=== PATIENT | male | born 1955 | race Caucasian/White ===

== ENCOUNTER 2016-08-31 08:36 | Emergency (ER) | payer OTHER ==
[~2016-08-31] VITALS: Ht 180.3 cm; Wt 88.0 kg
[2016-08-31 08:41] VITALS: Ht 180.3 cm; Wt 88.0 kg
--- NOTE | 2016-08-31 09:41 | RADRPT ---
PROCEDURE: XR Chest. CLINICAL INDICATION: Chest pain , cough TECHNIQUE: Single portable view of the chest was obtained COMPARISON: None FINDINGS: The heart and mediastinum are within normal limits. There are mild linear bibasilar atelectatic changes. The lungs are otherwise clear. There is no pleural effusion or pneumothorax. RPTAT: AA IMPRESSION: Mild linear bibasilar atelectatic changes. .Antonio Perdomo MD, MD Date Time Electronically viewed and signed by .Antonio Perdomo MD, MD on 08/31/2016 09:41 .S/
[2016-08-31] MEDS ORDERED: BENZ100C70 PO (10:38)
[2016-08-31] MEDS ORDERED: AZIT250T94 PO (10:38)
[2016-08-31] MEDS ORDERED: ALBU18HF INHALATION (10:38)
--- NOTE | 2016-08-31 17:59 | ERD ---
ER Documentation Chief Complaint Date/Time DATE: 08/31/16 TIME: 17:55 Chief Complaint ON AND OFF PRODUCTIVE COUGH WITH YELLOWISH PHLEGM X 5 MONTHS HPI 60-year-old male patient with a past medical history of diabetes presents to the ED complaining of a productive cough that started 5 months ago. Patient attributes this to a gas leak that is occurring at his apartment. States that it was not fixed until a few days ago. Denies any chest pain, wheezing, shortness of breath, abdominal pain, nausea, vomiting, diarrhea. Reports that some of the other residents are having similar symptoms. Denies any fever, chills. ROS All systems reviewed and are negative except as per history of present illness. Medications Home Meds Active Scripts Albuterol Sulfate* (Ventolin HFA*) 18 Gm Hfa.aer.ad, 2 PUFF INHALATION Q4H, #1 INHALER Prov:LYNN VICKERS PA-C 08/31/16 Benzonatate* (Tessalon Perle*) 100 Mg Capsule, 100 MG PO Q8H Y for COUGH, #20 CAP Prov:LYNN VICKERS PA-C 08/31/16 Azithromycin* (Zithromax*) 250 Mg Tablet, 250 MG PO .ZPACK DIRECTED, #6 TAB TAKE 500 MG (2 TABS) THE FIRST DAY THEN 250 MG (1 TAB) DAYS 2-5 Prov:LYNN VICKERS PA-C 08/31/16 PMhx/Soc Medical and Surgical Hx: pt denies Medical Hx, pt denies Surgical Hx Hx Alcohol Use: No Hx Substance Use: No Smoking Status: Never smoker Physical Exam Vitals Vital Signs Date Time Temp Pulse Resp B/P Pulse Ox O2 Delivery O2 Flow Rate FiO2 08/31/16 08:41 98.2 86 19 144/84 98 Physical Exam Const: Nhx-bjr-bsrhvvrcn, well-nourished. In no acute distress. Head: Atraumatic, normocephalic Eyes: Normal Conjunctiva without injection. No purulent discharge. PERRL. EOMI ENT: Normal external ear. Ear canal without erythema. Tympanic membrane pearly forbes without effusion or bulging. Nasal canal clear with normal turbinates. Moist oropharynx without tonsillar exudates. Non-erythematous pharynx. Uvula midline. No drooling. No trismus. Neck: Full range of motion. No meningismus. No cervical lymphadenopathy. Resp: Clear to auscultation bilaterally. No wheezing, rhonchi, rales, or crackles. No accessory muscle use. No retractions. Cardio: Regular rate and rhythm. No murmurs, rubs or gallops. Abd: Soft, non tender, non distended. Normal bowel sounds. No palpable masses. No rebound tenderness. No guarding. Skin: No petechiae or rashes Back: No midline tenderness. No CVA tenderness. Ext: No cyanosis, or edema. Neur: Awake and alert. Psych: Normal Mood and Affect Procedures/MDM This is a 60-year-old male patient with a past medical history of diabetes presents to the ED complaining of a productive cough with yellow phlegm that started intermittently 5 months ago. Patient is afebrile and nontoxic- appearing. Patient has normal vital signs. Since patient attributes the symptoms to a gas leak, the poison control was called at this time. Case number is [id number]. Sharon the pharmacist stated that patient's symptoms are unlikely due to a natural gas exposure. Propane and methane does not cause a productive cough she stated. Patient does not have any asphyxiation or hypoxia. Pulse oximetry is 98%. This patient presents to the ED with symptoms consistent with bronchitis. Patient's physical exam include lungs which were clear to auscultation and a normal pulse oximetry. There is a low suspicion for pneumonia, pneumothorax, mononucleosis, pulmonary embolism, epiglottitis, otitis media, otitis externa, viral/strep pharyngitis, sinusitis, peritonsillar abscess, mastoiditis, retropharyngeal abscess, meningitis, sepsis, acute abdomen or other emergent conditions. Discharge medications: Ventolin, Tessalon Perles, Zithromax Patient was instructed to return to the ED for any new or worsening symptoms. They should otherwise follow up with the primary care provider within 1-2 days. The patient's questions were answered at the time of discharge. Patient understood and agreed with discharge management. Departure Diagnosis: Primary Impression: Cough Condition: Stable Patient Instructions: Bronchitis, Antiobiotic Treatment (Adult) Referrals: [facility]ULE[facility] MUNGUIA [facility] (PCP) [facility] () Usted se peter hecho un examen mdico de control que le indica que no est en christi condicin que requiera tratamiento urgente en el Departamento de Emergencia. Un estudio ms profundo y el tratamiento de kitchen condicin pueden esperar sin ningn riesgo hasta que usted sea atendida/o en el consultorio de kitchen mdico o christi cl hesham. Es responsabilidad suya arreglar christi neva para el seguimiento del barb. MANEJO DE CONDICIONES NO URGENTES EN EL FUTURO 1) Si usted tiene un mdico de atencin primaria: Usted debera llamar a kitchen mdico de atencin primaria antes de venir al departamento de emergencia. Despus de las horas de consultorio, kitchen doctor o kitchen asociado/a est disponible por telfono. El mdico o enfermero de doug en el servicio telefnico puede asesorarle por jay medio para atender el problema, o barb contrario se puede programar christi neva. 2) Si usted no tiene un mdico de atencin primaria: Llame al mdico o clnica de referencia que aparece abajo phyllis las horas de consultorio para hacer christi neva para que le vean. CLINICAS: [facility] [phone] [facility] [phone] [facility] [phone] [facility]. [place] [id number] [phone] [facility] [place] [id number] [phone] [facility]. [phone] [facility] () Usted se peter hecho un examen mdico de control que le indica que no est en christi condicin que requiera tratamiento urgente en el Departamento de Emergencia. Un estudio ms profundo y el tratamiento de kitchen condicin pueden esperar sin ningn riesgo hasta que usted sea atendida/o en el consultorio de kitchen mdico o christi cl hesham. Es responsabilidad suya arreglar christi neva para el seguimiento del barb. MANEJO DE CONDICIONES NO URGENTES EN EL FUTURO 1) Si usted tiene un mdico de atencin primaria: Usted debera llamar a kitchen mdico de atencin primaria antes de venir al departamento de emergencia. Despus de las horas de consultorio, kitchen doctor o kitchen asociado/a est disponible por telfono. El mdico o enfermero de doug en el servicio telefnico puede asesorarle por jay medio para atender el problema, o barb contrario se puede programar christi neva. 2) Si usted no tiene un mdico de atencin primaria: Llame al mdico o condado institucions de referencia que aparece abajo phyllis las horas de consultorio para hacer christi neva para que le vean. SI USTED NO PUEDE PAGAR PARA SUNDAR UN MEDICO puede ir a: [facility] [id number] [place] [address] [facility] [address] [place] [address] [facility] [address] [place] [address] [facility] [address] [place] [address] Additional Instructions: Call your primary care doctor TOMORROW for an appointment during the next 2-3 days.See the doctor sooner or return here if your condition worsens before your appointment time. LYNN VICKRES PA-C Aug 31, 2016 17:59 LYNN VICKERS PA-C Aug 31, 2016 17:59
== END 2016-08-31 10:58 | disposition home or self-care (01) ==
LOC: FTE 08:36
DX: R05 Cough (principal)
CPT/HCPCS: 71010

== ENCOUNTER 2016-11-04 12:44 | Day surgery (SDC) | payer OTHER ==
[~2016-11-04] VITALS: Ht 180.3 cm; Wt 84.1 kg
[~2016-11-04 12:44] MED LIST: ALBU18HF INHALATION; AZIT250T94 PO; BENZ100C70 PO
[2016-11-04 14:45] VITALS: Ht 180.3 cm; Wt 84.1 kg
[2016-11-04] MEDS ORDERED: GLUCOPHAGE PO (14:52)
[2016-11-04 16:08] VITALS: BP 141/72; PULSE 77; RESP 21
--- NOTE | 2016-11-04 16:43 | OPPN ---
Date/Time of Note Date/Time of Note DATE: 11/04/16 TIME: 16:40 Operative Report Preoperative Diagnosis Colorectal cancer screening Postoperative Diagnosis Impression: * 4 mm polyp cecum. Snared and retrieved * 6 mm polyp cecum. Snared and retrieved * Area of nodularity in the cecum of questionable clinical significance. Biopsies obtained * Moderate-sized internal hemorrhoids. Plan: * Review pathology * Follow-up as previously scheduled * Annual Hemoccult stool testing * Colonoscopy in 5 years pending review pathology . Operation/Procedure Performed Colonoscopy with snare polypectomy Colonoscopy with biopsies Provider: ERIK JOHN MD Anesthesia Type: moderate sedation (Versed 6 mg/fentanyl 100 mg) Estimated blood loss: minimal Specimens Nodularity in the cecum. Biopsies obtained Cecum polyp 2 Grafts/Implants: none Complications: no ERIK JOHN MD Nov 04, 2016 16:43
[2016-11-04] MEDS ORDERED: FENTAnyl 50 MCG/ML VIAL ONE ×2 (16:46→16:47)
[2016-11-04] MEDS ORDERED: MIDAZOLAM 1 MG/ML 2 ML INJ ONE ×3 (16:46)
[2016-11-04 17:10] VITALS: BP 127/78; PULSE 74; RESP 12
== END 2016-11-04 18:10 | disposition home or self-care (01) ==
LOC: GIL 12:44
PROVIDERS: ATTEND Internal Medicine Gastroenterology
DX: Z12.11 Encounter for screening for malignant neoplasm of colon (principal); D12.0 Benign neoplasm of cecum; K64.8 Other hemorrhoids; E11.9 Type 2 diabetes mellitus without complications
CPT/HCPCS: 45385; 82962; 88305; J2250; J3010; Z7610

== ENCOUNTER 2018-01-02 10:53 | Emergency (ER) | END 2018-01-02 12:40 | disposition home or self-care (01) ==